=== PATIENT | male | born 1940 | race Asian ===

== ENCOUNTER 2022-10-22 01:16 | Inpatient (IN) | payer MEDICARE ==
[2022-10-22] MEDS ORDERED: Magnesium 2 GM/50 ML BAG (IN WATER) ONE (02:07)
[2022-10-22] MEDS ORDERED: Ipratropium/Albuterol 3 ML NEB ONE (02:44)
[2022-10-22 03:12] LABS: Mean Corpuscular HGB CONC 33.2 g/dL (32.0-36.0); Mean Corpuscular Hemoglobin 33.6 pg (27.0-31.0); Mean Platelet Volume 9.7 fL (7.4-10.4); Red Blood Cell (RBC) Count 3.88 mill/uL (4.70-6.10); White Blood Cell (WBC) Count 12.1 10x3/uL (4.8-10.8)
[2022-10-22 03:19] LABS: ALT (SGPT) 37 U/L (8-55); AST (SGOT) 39 U/L (5-34); Alkaline Phosphatase 113 U/L (40-110); Anion Gap 14 mmol/L (10-20); BUN (Urea Nitrogen) 16 mg/dL (8.4-25.7); Bilirubin, Total 0.5 mg/dL (0.2-1.2); Calc. Creatinine Clearance 0 mL/min (70-130); Calcium 8.6 mg/dL (7.8-10.44); Carbon Dioxide 21 mmol/L (23-31); Chloride 90 mmol/L (98-107); Estimated GFR 59; Globulin 2.5 g/dL (2.4-3.5); Glucose 174 mg/dL (83-110); Potassium 3.9 mmol/L (3.5-5.1); Protein, Total 6.5 g/dL (5.8-8.1); Sodium 121 mmol/L (136-145)
[2022-10-22 03:41] LABS: CKMB 3.3 ng/mL (0-6.6)
[2022-10-22 03:46] LABS: #Eosinphils 0.1 thou/uL (0.0-0.7); #Lymphocytes 1.1 thou/uL (1.20-3.40); #Monocytes 0.6 thou/uL (0.11-0.59); #Neutrophils 10.6 thou/uL (1.40-6.50); %Basophils 0.2 % (0.0-1.0); %Eosinophils 0.7 % (0.0-10.0); %Lymphocytes 9.1 % (21.0-51.0); %Monocytes 4.5 % (0.0-10.0); %Neutrophils 85.5 % (42.0-75.0); Burr Cells SLIGHT = 2-5 cells (100X) (0-1/hpf); MDiff Complete? YES; Macrocytosis SLIGHT = 6-15 cells (100X) (0-5/hpf); Ovalocytes SLIGHT = 2-5 cells (100X) (0-1/hpf)
[2022-10-22] MEDS ORDERED: Aspirin Chewable 81 MG TAB ONE ×2 (04:22→10:43)
[2022-10-22] MEDS ORDERED: Vancomycin 1 GM/200 ML (FROZEN) BAG ONE (04:22)
[2022-10-22] MEDS ORDERED: Furosemide 40 MG/4 ML VIAL ONE (04:22)
[2022-10-22 06:35] LABS: Lactic Acid 5.6 mmol/L (0.5-2.2)
[2022-10-22 06:39] LABS: Troponin I 0.045 ng/mL (< 0.028)
[2022-10-22 06:53] LABS: Bilirubin Negative (Negative); Blood, Urine Negative (Negative); Clarity Clear (Clear); Glucose, Urine (Dipstick) Normal (Negative); Ketone, Urine Negative (Negative); Leukocyte Negative Leu/uL (Negative); Nitrite Negative (Negative); Protein, Urine (Dipstick) Negative (Neg-Trace); Specific Gravity, Urine 1.009 (1.002-1.036); Urobilinogen Normal mg/dL (Less than 2)
[2022-10-22] MEDS: Ipratropium/Albuterol 3 ML NEB NEB SCH ×4 (08:16→22:21)
[2022-10-22 09:29] LABS: Troponin I 0.055 ng/mL (< 0.028)
[2022-10-22] MEDS ORDERED: Cefepime 1 GM VIAL ONE (10:43)
[2022-10-22] MEDS ORDERED: Iopamidol-370 76% 500 ML 1 ML ONE (10:46)
[2022-10-22] MEDS: Aspirin Chewable 81 MG TAB PO SCH (10:58)
[2022-10-22] MEDS: Cefepime 1 GM in Sodium Chloride 0.9% 100 ML IVPB SCH ×2 (10:58→21:38)
[2022-10-22 13:00] VITALS: BMI 24.1
[2022-10-22] MEDS: Furosemide 40 MG/4 ML VIAL SLOW IVP SCH (16:47)
[2022-10-22] MEDS ORDERED: methylPREDNISolone Sod Succ 40 MG VIAL IVP SCH (21:00)
[2022-10-23 04:29] LABS: #Monocytes 1.2 thou/uL (0.11-0.59); %Basophils 0.1 % (0.0-1.0); %Eosinophils 0.1 % (0.0-10.0); %Lymphocytes 8.4 % (21.0-51.0); %Monocytes 9.8 % (0.0-10.0); %Neutrophils 81.6 % (42.0-75.0); Mean Corpuscular HGB CONC 32.9 g/dL (32.0-36.0); Mean Corpuscular Hemoglobin 32.7 pg (27.0-31.0); Mean Corpuscular Volume 99.3 fl (78.0-98.0); Mean Platelet Volume 8.5 fL (7.4-10.4); Platelet Count 186 10x3/uL (130-400); RBC Distribution Width 12.2 % (11.5-14.5); Red Blood Cell (RBC) Count 3.97 mill/uL (4.70-6.10); White Blood Cell (WBC) Count 12.3 10x3/uL (4.8-10.8)
[2022-10-23 04:53] LABS: Phosphorus 4.4 mg/dL (2.3-4.7)
[2022-10-23 04:55] LABS: ALT (SGPT) 31 U/L (8-55); AST (SGOT) 35 U/L (5-34); Albumin 3.9 g/dL (3.4-4.8); Alkaline Phosphatase 71 U/L (40-110); Anion Gap 14 mmol/L (10-20); BUN (Urea Nitrogen) 24 mg/dL (8.4-25.7); Bilirubin, Total 0.8 mg/dL (0.2-1.2); Calc. Creatinine Clearance 40 mL/min (70-130); Calcium 9.4 mg/dL (7.8-10.44); Carbon Dioxide 25 mmol/L (23-31); Chloride 97 mmol/L (98-107); Estimated GFR 52; Globulin 2.8 g/dL (2.4-3.5); Glucose 117 mg/dL (83-110); Magnesium 2.5 mg/dL (1.6-2.6); Potassium 4.4 mmol/L (3.5-5.1); Protein, Total 6.7 g/dL (5.8-8.1); Sodium 132 mmol/L (136-145)
[2022-10-23] MEDS: Furosemide 40 MG/4 ML VIAL SLOW IVP SCH ×2 (06:21→13:49)
[2022-10-23 06:38] LABS: Platelet Clumps MODERATE; Platelet Morphology Comment PLT clumps seen-ADEQ
[2022-10-23] MEDS: Ipratropium/Albuterol 3 ML NEB NEB SCH ×3 (07:55→19:06)
[2022-10-23] MEDS: Aspirin Chewable 81 MG TAB PO SCH (09:22)
[2022-10-23] MEDS: Cefepime 1 GM in Sodium Chloride 0.9% 100 ML IVPB SCH ×2 (09:22→21:52)
[2022-10-24] MEDS: Ipratropium/Albuterol 3 ML NEB NEB SCH ×4 (01:20→18:34)
[2022-10-24 02:43] LABS: #Eosinphils 0.1 thou/uL (0.0-0.7); #Monocytes 1.1 thou/uL (0.11-0.59); #Neutrophils 7.8 thou/uL (1.40-6.50); %Basophils 0.3 % (0.0-1.0); %Lymphocytes 17.7 % (21.0-51.0); %Monocytes 10.2 % (0.0-10.0); %Neutrophils 70.8 % (42.0-75.0); Hemoglobin 14.1 g/dL (14.0-18.0); Mean Corpuscular HGB CONC 34.1 g/dL (32.0-36.0); Mean Corpuscular Hemoglobin 33.8 pg (27.0-31.0); Mean Platelet Volume 8.2 fL (7.4-10.4); Platelet Count 201 10x3/uL (130-400); RBC Distribution Width 12.2 % (11.5-14.5); Red Blood Cell (RBC) Count 4.19 mill/uL (4.70-6.10)
[2022-10-24 03:03] LABS: Anion Gap 17 mmol/L (10-20); BUN (Urea Nitrogen) 31 mg/dL (8.4-25.7); Calc. Creatinine Clearance 38 mL/min (70-130); Calcium 9.4 mg/dL (7.8-10.44); Carbon Dioxide 23 mmol/L (23-31); Chloride 98 mmol/L (98-107); Estimated GFR 48; Glucose 111 mg/dL (83-110); Magnesium 2.2 mg/dL (1.6-2.6); Potassium 3.5 mmol/L (3.5-5.1); Sodium 134 mmol/L (136-145)
[2022-10-24 03:07] LABS: ALT (SGPT) 31 U/L (8-55); AST (SGOT) 41 U/L (5-34); Alkaline Phosphatase 80 U/L (40-110); Anion Gap 16 mmol/L (10-20); BUN (Urea Nitrogen) 31 mg/dL (8.4-25.7); Bilirubin, Total 1.2 mg/dL (0.2-1.2); Calc. Creatinine Clearance 36 mL/min (70-130); Calcium 9.5 mg/dL (7.8-10.44); Carbon Dioxide 24 mmol/L (23-31); Chloride 98 mmol/L (98-107); Estimated GFR 46; Globulin 2.7 g/dL (2.4-3.5); Glucose 111 mg/dL (83-110); Potassium 3.5 mmol/L (3.5-5.1); Protein, Total 6.7 g/dL (5.8-8.1); Sodium 134 mmol/L (136-145)
[2022-10-24] MEDS ORDERED: Potassium Chloride 20 MEQ TAB PO SCH (03:30)
[2022-10-24] MEDS ORDERED: Metoprolol Tartrate 5 MG/5 ML VIAL IVP SCH (03:45)
[2022-10-24] MEDS: Furosemide 40 MG/4 ML VIAL SLOW IVP SCH ×2 (06:35→16:55)
[2022-10-24] MEDS: Aspirin Chewable 81 MG TAB PO SCH (10:04)
[2022-10-24] MEDS: Tamsulosin HCl 0.4 MG CAP PO SCH (10:05)
[2022-10-24] MEDS: Cefepime 1 GM in Sodium Chloride 0.9% 100 ML IVPB SCH (10:05)
[2022-10-24] MEDS: FLUoxetine HCl 20 MG CAP PO SCH (10:05)
[2022-10-24] MEDS ORDERED: Communication Order-Pharmacy FS SCH (18:30)
[2022-10-24] MEDS ORDERED: Sodium Chloride 0.9% 500 ML IV SCH (20:00)
[2022-10-24] MEDS ORDERED: Atorvastatin Calcium 10 MG TAB PO SCH (21:00)
[2022-10-25] MEDS: Ipratropium/Albuterol 3 ML NEB NEB SCH ×3 (00:52→14:02)
[2022-10-25 05:02] LABS: Anion Gap 14 mmol/L (10-20); BUN (Urea Nitrogen) 31 mg/dL (8.4-25.7); Calc. Creatinine Clearance 36 mL/min (70-130); Calcium 9.1 mg/dL (7.8-10.44); Carbon Dioxide 25 mmol/L (23-31); Chloride 100 mmol/L (98-107); Estimated GFR 48; Glucose 109 mg/dL (83-110); Potassium 4.3 mmol/L (3.5-5.1); Sodium 135 mmol/L (136-145)
[2022-10-25] MEDS ORDERED: Nitroglycerin 100MG/250ML BOT 0 ML ONE (06:17)
[2022-10-25] MEDS ORDERED: Lidocaine 1% (PF) 30 ML VIAL ONE (06:17)
[2022-10-25] MEDS ORDERED: Heparin 10,000 UNITS/ 10 ML VIAL ONE (06:17)
[2022-10-25] MEDS ORDERED: Sodium Chloride 0.9% 200 ML IV PRN (08:12)
[2022-10-25] MEDS ORDERED: Sodium Chloride 0.9% 250 ML IV SCH (08:15)
[2022-10-25] MEDS: Aspirin Chewable 81 MG TAB PO SCH (09:10)
[2022-10-25] MEDS: FLUoxetine HCl 20 MG CAP PO SCH (09:10)
[2022-10-25] MEDS: Tamsulosin HCl 0.4 MG CAP PO SCH (09:11)
[2022-10-25 16:29] VITALS: BP 109/58; TEMP 98.5
[2022-10-26] MEDS ORDERED: Empagliflozin 10 MG TAB PO SCH (09:00)
== END 2022-10-25 17:45 | disposition home or self-care (01) | DRG 286 ==
LOC: ERS 01:16 → ERHOLD 04:17 → IMCU/EMU 12:27 → 2NO 10-23 17:29
PROVIDERS: ADMIT Student in an Organized Health Care Education/Training Program; ATTEND Family Medicine
PROC: 4A023N7 Measurement of Cardiac Sampling and Pressure, Left Heart, Percutaneous Approach (ICD-10-PCS; principal; 2022-10-25)
PROC: B2111ZZ Fluoroscopy of Multiple Coronary Arteries using Low Osmolar Contrast (ICD-10-PCS; 2022-10-25)
PROC: B2151ZZ Fluoroscopy of Left Heart using Low Osmolar Contrast (ICD-10-PCS; 2022-10-25)
DX: I11.0 Hypertensive heart disease with heart failure (principal); I50.23 Acute on chronic systolic (congestive) heart failure; E87.1 Hypo-osmolality and hyponatremia; I42.8 Other cardiomyopathies; E78.5 Hyperlipidemia, unspecified; N40.0 Benign prostatic hyperplasia without lower urinary tract symptoms; K21.9 Gastro-esophageal reflux disease without esophagitis; F32.A Depression, unspecified; D69.6 Thrombocytopenia, unspecified; E78.00 Pure hypercholesterolemia, unspecified; R73.9 Hyperglycemia, unspecified; I44.7 Left bundle-branch block, unspecified; I34.0 Nonrheumatic mitral (valve) insufficiency; D72.829 Elevated white blood cell count, unspecified; Z86.16 Personal history of COVID-19; Z87.891 Personal history of nicotine dependence; Z88.6 Allergy status to analgesic agent; Z88.0 Allergy status to penicillin
CPT/HCPCS: 36415; 71045; 71275; 80048; 80053; 81003; 82553; 83605; 83735; 83880; 84100; 84443; 84484; 85025; 87040; 87086; 93005; 93010; 93306; 93458; 93798; 94640; 94660; 94760; 96365; 96366; 96367; 96375; 97139; C1769; C1887; J0692; J1644; J1940; J2001; J3370-JW; J3475; J3490; J7030; J7620; Q9967

== ENCOUNTER 2024-10-05 10:56 | Emergency (ER) | payer BC, MEDICARE ==
[2024-10-05 11:37] LABS: #Basophils Less than 0.03 10x3/uL (0.0-0.2); %Basophils 0.2 % (0.0-1.0); %Lymphocytes 27.6 % (21.0-51.0); %Monocytes 10.8 % (0.0-10.0); %Neutrophils 59.2 % (42.0-75.0); Hematocrit 38.8 % (42.0-52.0); Hemoglobin 12.9 g/dL (14.0-18.0); Mean Corpuscular HGB CONC 33.2 g/dL (32.0-36.0); Mean Corpuscular Hemoglobin 31.1 pg (27.0-31.0); Mean Corpuscular Volume 93.5 fL (78.0-98.0); Mean Platelet Volume 9.7 fL (7.4-10.4); Platelet Count 188 10x3/uL (130-400); RBC Distribution Width 12.6 % (11.5-14.5); Red Blood Cell (RBC) Count 4.15 mill/uL (4.70-6.10)
[2024-10-05 11:56] LABS: Bacteria/HPF None Seen HPF (None Seen); Bilirubin Negative (Negative); Blood, Urine 1+ (Negative); CAUTI Indications for Culture Alt mental st,lethar; Clarity Clear (Clear); Glucose, Urine (Dipstick) Greater than 1000 mg/dL (Negative); Ketone, Urine Negative (Negative); Leukocyte Negative Leu/uL (Negative); Nitrite Negative (Negative); Protein, Urine (Dipstick) 10 mg/dL (Neg-Trace); RBC/HPF 0-3 HPF (0-3); Specific Gravity, Urine 1.017 (1.002-1.036); Squamous Epithelial 0-3 HPF (0-3); Urobilinogen Normal mg/dL (Less than 2); WBC/HPF 0-3 HPF (0-3)
[2024-10-05 11:58] LABS: Urine Culture Reflex No No
[2024-10-05 12:04] LABS: ALT (SGPT) 19 U/L (Less than 45); AST (SGOT) 33 U/L (11-34); Albumin 3.7 g/dL (3.1-4.5); Alkaline Phosphatase 65 U/L (40-110); Anion Gap 14 mmol/L (10-20); BUN (Urea Nitrogen) 24 mg/dL (8.4-25.7); Calc. Creatinine Clearance 0 mL/min (70-130); Calcium 8.9 mg/dL (7.8-10.44); Carbon Dioxide 20 mmol/L (23-31); Chloride 105 mmol/L (98-107); Estimated GFR 43; Glucose 111 mg/dL (83-110); Potassium 4.7 mmol/L (3.5-5.1); Protein, Total 6.7 g/dL (5.8-8.1); Sodium 134 mmol/L (136-145)
[2024-10-05 12:10] LABS: Acetaminophen 19 mcg/mL (Less than 10); Alcohol Less than 10.0 mg/dL (Less than 10); Salicylate Less than 8.0 mg/dL (Less than 8.0)
[2024-10-05 12:36] LABS: Amphetamine Not Detected (NotDetected); Barbiturates Screen Not Detected (NotDetected); Benzodiazepine Screen Detected (NotDetected); Cocaine Metabolite Screen Not Detected (NotDetected); Methadone Not Detected (NotDetected); Methamphetamine Not Detected (NotDetected); Opiate Screen Not Detected (NotDetected); Oxycodone Screen Not Detected (NotDetected); Phencyclidine (PCP) Not Detected (NotDetected); THC/Cannabinoid Screen Not Detected (NotDetected); Tricyclic Screen Not Detected (NotDetected)
== END 2024-10-05 14:04 | disposition home or self-care (01) ==
LOC: ERS 10:56
DX: R41.82 Altered mental status, unspecified (principal); I10 Essential (primary) hypertension; E11.9 Type 2 diabetes mellitus without complications; F19.929 Other psychoactive substance use, unspecified with intoxication, unspecified
CPT/HCPCS: 36415; 70450; 71045; 80053; 80306; 80307; 81001; 83605; 84443; 84484; 85025; 93005; 94760

== ENCOUNTER 2025-04-15 08:03 | Outpatient (CLI) | payer MEDICARE | END 2025-04-15 08:04 | disposition home or self-care (01) | LOC: CT 08:03 | PROVIDERS: ATTEND Internal Medicine | DX: R41.3 Other amnesia (principal); G20.C Parkinsonism, unspecified; R25.1 Tremor, unspecified | CPT/HCPCS: 70450; 78803; A9584 ×2 ==